=== PATIENT | female | born 2000 | race African-American/Black ===

== ENCOUNTER 2024-12-31 00:12 | Emergency (ER) | payer MEDICAID, OTHER ==
[~2024-12-31] VITALS: Ht 167.6 cm; Wt 60.0 kg
[2024-12-31 00:24] VITALS: O2SAT 98
[2024-12-31] MEDS: ACETAMINOPHEN 500MG TABLET PO ONE (00:59)
[2024-12-31 02:19] VITALS: BP 119/77; PULSE 94; RESP 16; TEMP 36.4; O2SAT 98
== END 2024-12-31 02:22 | disposition home or self-care (01) ==
LOC: ER 00:12
DX: S00.93XA Contusion of unspecified part of head, initial encounter (principal); V89.2XXA Person injured in unspecified motor-vehicle accident, traffic, initial encounter; Y93.89 Activity, other specified; Y92.89 Other specified places as the place of occurrence of the external cause; Y99.8 Other external cause status
CPT/HCPCS: 81025; 99284